=== PATIENT | female | born 1995 | race Caucasian/White ===

== ENCOUNTER → 2020-01-13 07:58 | Outpatient (CLI) | payer OTHER, SELFPAY ==
--- NOTE | 2020-01-13 08:01 | US_ITS ---
STUDY: FIRST TRIMESTER OBSTETRICAL ULTRASOUND REASON FOR EXAM: Female, 24 years old INITIAL- DATING -- SUPERVISION OF NORMAL LMP: December 16, 2019. TECHNIQUE: Transvaginal TECHNICAL QUALITY: Adequate. PRIOR ULTRASOUND: None. FINDINGS: There is visualization of a single gestational sac in a normal intrauterine position. The mean sac diameter (MSD) measures 1.5 cm, indicating an estimated gestational age (EGA) of 6 weeks, 1 days. The gestational sac shape is within normal limits. There is a visualized yolk sac. The yolk sac measures 3.7 mm. The placenta is non-visualized. There is visualization of a live embryo. The crown-rump length (CRL) measures 3.4 mm, indicating an estimated gestational age (EGA) of 6 weeks, 1 days. There is demonstrated cardiac activity with a heart rate of 107 bpm. The estimated gestation age (EGA) by LMP is 6 weeks, 0 days. The estimated date of delivery (SUYAPA) by LMP is September 07, 2020. The estimated gestation age (EGA) by US is 6 weeks, 1 days. The estimated date of delivery (SUYAPA) by US is September 06, 2020. The uterus measures 11 cm x 7.4 cm x 6.3 cm. There is no demonstrated uterine fibroid. The cervix is closed. Small subchorionic hematoma measuring 1.8 cm x 2.3 cm x 0.6 cm. The right ovary measures 3.1 cm x 5.1 cm x 3 cm. There is a 1.5 cm x 1.6 cm x 1 cm dominant follicle in the right ovary. There is no visualized right adnexal mass or complex lesion. The left ovary measures 3.3 cm x 2.7 cm x 2.1 cm.. There is no left ovarian cyst. There is no visualized left adnexal mass or complex lesion. There is no fluid in the cul de sac. US/Init OB < 14Wks US IMPRESSION: Single live uterine gestation with a mean gestational age of 6 weeks and 1 day. Small subchorionic bleed. Small right ovarian follicle. Electronically Signed: Arun Goins, at 12:44 EDT , Service support ,
== END ==
LOC: OPUS 08:01
PROVIDERS: Referring Provider Obstetrics & Gynecology; Visit Provider Obstetrics & Gynecology
DX: Z34.90 Encounter for supervision of normal pregnancy, unspecified, unspecified trimester (principal)
CPT/HCPCS: 76801

== ENCOUNTER → 2020-02-19 14:56 | Outpatient (CLI) | payer OTHER, SELFPAY ==
[2020-02-19 10:02] VITALS: BMI 28.6
[2020-02-19 15:59] LABS: Amphetamine Urine VISTA NEGATIVE (<1000 ng/mL); Barbiturate Urine VISTA NEGATIVE (< 200 ng/mL); Benzodiazepine Urine VISTA NEGATIVE (< 200 ng/mL); Cocaine Urine VISTA NEGATIVE (< 300 ng/mL); Ecstacy Urine VISTA NEGATIVE (< 500 ng/mL); Methadone Urine VISTA NEGATIVE (< 300 ng/mL); PCP Urine VISTA NEGATIVE (< 25 ng/mL); THC Urine VISTA POSITIVE (< 50 ng/mL); Vista UDS pH Range 6
[2020-02-19 18:51] LABS: Chlamydia Trachomatis by PCR Negative (Negative); Neisserai gonorrhoeae by PCR Negative (Negative); Probe Check PASS; Sample Adequacy Control PASS; Specimen Processing Control PASS
[2020-02-24 20:42] LABS: HPV Reflexed? NOT INDICATED
== END ==
LOC: LABSPEC 14:56
PROVIDERS: Referring Provider Obstetrics & Gynecology; Visit Provider Obstetrics & Gynecology
DX: Z34.90 Encounter for supervision of normal pregnancy, unspecified, unspecified trimester (principal); Z12.4 Encounter for screening for malignant neoplasm of cervix
CPT/HCPCS: 80307; 87086; 87088; 87186; 87491; 87591; 88175; G0145

== ENCOUNTER 2021-10-01 16:18 | Emergency (ER) | payer OTHER, MEDICAID, SELFPAY ==
[2021-10-01 16:20] VITALS: BP 151/105; PULSE 84; RESP 16; TEMP 37.5; O2SAT 99; BMI 23.1
--- NOTE | 2021-10-01 16:39 | EX.ED.DYSGE1 ---
HPI History of Present Illness Chief Complaint: Abd Pain Narrative Narrative: 25-year-old female presenting with constipation. She has lower abdominal pressure. She states she has not had a bowel movement in 7 days. She has not taken any oral laxatives or fiber. She states she has a low fiber diet does not eat very healthy. She tried to do an enema prior to arrival and was afraid when the enema fluid came out there was some blood in the toilet. She is not experiencing worse pain. She does state that her rectum hurts however she also did a self rectal exam and an enema. No bleeding since that time. She has no vaginal complaints. No urinary symptoms. No fever or chills. Patient does admit to nausea. PFSH PFSH Home Medications multivitamin no.47-iron fum 27 mg-folate no.1 1 mg-dha 300 mg capsule 1 cap PO DAILY #30 cap 02/19/20 [Rx Last Taken Unknown] promethazine 12.5 mg tablet 12.5 mg PO Q6H PRN #60 tab 02/19/20 [Rx Last Taken Unknown] ondansetron 4 mg PO Q8H PRN PRN #10 tab 10/01/21 [Rx Last Taken Unknown] Allergy/AdvReac Type Severity Reaction Status Date / Time amoxicillin Allergy Hives Verified 10/01/21 16:22 Family History (Updated 02/19/20 @ 09:23 by Eusebia Rosenthal) Mother Cancer Lung Father Lupus Surgical History (Updated 02/19/20 @ 09:21 by Eusebia Rosenthal) History of cholecystectomy S/P tonsillectomy and adenoidectomy Social History (Updated 02/19/20 @ 10:[address] Lucille Villanueva MD) adopted: No household members: family housing: house number of children: 2 current occupation: homemaker pets and animals: No sexually active: Yes Smoking Status: Current every day smoker tobacco type: cigarettes second hand exposure: Yes alcohol intake: current details: not while substance use type: does not use seatbelt use: always do you feel safe at home: Yes additional social history: Sean- Harvey ROS ROS ED Constitutional Constitutional ED: Denies chills or fever(s) Eyes Eyes: Denies blurry vision or diplopia ENT ENT ED: Denies rhinorrhea or sore throat Cardiovascular Cardiovascular: Denies chest pain or palpitations Respiratory/Chest Respiratory/Chest: Denies cough or dyspnea Gastrointestinal Gastrointestinal: Reports abdominal pain, constipation and nausea Genitourinary Genitourinary ED: Denies dysuria or hematuria Musculoskeletal Musculoskeletal: Denies arthralgias or myalgias Integumentary Denies rash Neurologic Neurologic: Denies headache(s) or paresthesias Psychiatric Psychiatric: Denies anxiety or depression EXAM Physical Exam Const Vital Signs: 10/01/21 16:20 Temperature 99.5 F H Temperature Source Temporal Pulse Rate 84 Respiratory Rate 16 Blood Pressure 151/105 H Blood Pressure Mean 120 Pulse Ox 99 Oxygen Delivery Method Room Air Positive well nourished General Appearance ED: NAD; Negative for pallor HEENT Reports moist mucous membranes Negative for trauma Eyes PERRL and EOMs intact bilaterally Chest Wall inspection of chest normal Resp normal respiratory effort and clear to auscultation bilaterally Cardio regular rate and regular rhythm GI non-distended GI Narrative: Generalized tenderness of the abdomen worse in the bilateral lower quadrants. Abdomen nonperitoneal. Rectal exam reveals no internal or external hemorrhoids. There is no blood or signs of injury. Palpation: soft Extremity normal to inspection Neuro oriented x3 Sensorium / Orientation: alert Psych mental status grossly normal Skin General Skin Exam: Negative for jaundice or pallor MDM MDM MDM Narrative Medical decision making narrative: Patient presenting with constipation for 7 days. Patient does have some abdominal pressure. She was more concerned that she saw blood in the toilet. Her rectal exam is normal here and there is no blood on exam. I did not palpate any stool in the rectal vault. Patient does state that she is having some nausea associate with her constipation I did give her Zofran. Her abdominal exam is benign at this time. Patient is hesitant to do another enema given her concern of a blood in the toilet. I offered to give her magnesium citrate for home and she can try to have a bowel movement at this is not improving to return to the ER. She was amenable to this plan. Patient will be discharged home in stable condition. Impression: 1. Constipation Discharge Plan Triage Chief Complaint: Abd Pain ED Provider: Calvin Chand Dx/Rx/DC Orders Instructions: Eating a High-Fiber Diet, ED Constipation (Adult) Prescriptions: New ondansetron 4 mg tablet,disintegrating 4 mg PO Q8H PRN PRN (Reason: Nausea) Qty: 10 RF: 0 No Action promethazine 12.5 mg tablet 12.5 mg PO Q6H PRN (Reason: nausea and vomiting) Qty: 60 RF: 1 PNV-DHA 27 mg iron-1 mg -300 mg capsule 1 cap PO DAILY Qty: 30 RF: 12 Primary Care Provider: Taylor Cleaning Disposition Disposition: Home, Self Care
[2021-10-01] MEDS: Ondansetron ODT 4 MG Tablet PO (16:48)
[2021-10-01] MEDS: Magnesium Citrate 300 ML PO (16:48)
--- NOTE | 2021-10-01 18:45 | ED.RN ---
PT MOTHER CALLS IN CONCERNED PT WAS NOT TREATED APPROPRIATELY. MOTHER WANTS INFORMATION ON WHAT PHYSICIAN DID. THIS RN CONFIRMS INFORMATION THAT PT MOTHER KNOWS BUT WILL NOT READ DR MEREDITH. STATES PT HAS PAIN DOWN BOTH LEGS, WHICH WAS NOT A COMPLAINT WHILE IN THE DEPARTMENT. MOTHER AWARE PT AND PHYSICIAN MADE A PLAN FOR TREATMENT AND BOTH WERE AGREEABLE WITH DISCHARGE PLAN
== END 2021-10-01 16:55 | disposition home or self-care (01) ==
PROVIDERS: Emergency Provider Student in an Organized Health Care Education/Training Program; PCP Family Medicine
DX: K59.00 Constipation, unspecified (principal); F17.210 Nicotine dependence, cigarettes, uncomplicated
CPT/HCPCS: 99283

== ENCOUNTER 2024-07-04 20:36 | Emergency (ER) | payer MEDICAID, SELFPAY ==
[2024-07-04 20:37] VITALS: BP 145/89; PULSE 90; RESP 18; TEMP 36.8; O2SAT 100; BMI 33.7
[2024-07-04 20:39] VITALS: O2SAT 96
--- NOTE | 2024-07-04 20:39 | EKG12_ITS ---
Test Reason : CP Blood Pressure : / mmHG Vent. Rate : 079 BPM Atrial Rate : 079 BPM P-R Int : 152 ms QRS Dur : 080 ms QT Int : 364 ms P-R-T Axes : 061 045 039 degrees QTc Int : 417 ms Normal sinus rhythm Normal ECG Confirmed by LEI LUDWIG MD ([id number]), metropolitan editor CHICHO ZIMMER ([id number]) on 07/08/2024 10:10:52 AM Referred By: Confirmed By:LEI LUDWIG MD
--- NOTE | 2024-07-04 21:02 | EDS_ITS ---
HPI <STANISLAV Mclain - Last Filed: 07/04/24 21:46> History of Present Illness Chief Complaint: Chest Pain Narrative Narrative: Patient is a 28-year-old female with no significant medical history, patient presents to the emergency department for pain to the left side of her chest that started last evening. Patient states that she has had multiple symptoms, patient states that she was short of breath, she had chest pain, was feeling dizziness, she also states that she had some fleabites on her lower legs. She went to a hospital in [place], they performed a full workup. Patient received a CT scan of the chest to rule out a pulmonary embolus, this was negative. They also did a CT scan of the abdomen pelvis which showed a 2.5 x 3.9 x 2.8 cyst with blood to the pancreas and left adrenal gland. Patient was given follow-up, given antibiotics for a UTI that she had in was discharged. Patient states the pain in her left chest continued, and she is here for reevaluation. PFSH <STANISLAV Mclain - Last Filed: 07/04/24 21:46> [facility] Medical History (Updated 07/04/24 @ 21:45 by STANISLAV Mclain) PTSD (post-traumatic stress disorder) Anxiety Depression Home Medications ?Medication ?Instructions ?Recorded ?Last Taken ?Type NK 07/04/24 Unknown History Allergy/AdvReac Type Severity Reaction Status Date / Time amoxicillin Allergy Hives Verified 07/04/24 20:36 Family History Mother Cancer Lung Father Lupus Surgical History History of cholecystectomy S/P tonsillectomy and adenoidectomy Social History (Updated 02/19/20 @ 10:[address] Lucille Villanueva MD) adopted: No household members: family housing: house number of children: 2 current occupation: homemaker pets and animals: No sexually active: Yes Smoking Status: Current every day smoker tobacco type: e-cigarettes second hand exposure: Yes alcohol intake: current details: not while substance use type: does not use seatbelt use: always do you feel safe at home: Yes additional social history: Sean- Harvey ROS <STANISLAV Mclain - Last Filed: 07/04/24 21:46> ROS ED ROS Narrative Constitutional: Negative for fever, chills, weight loss, weakness Eyes: Negative for vision loss, vision change, double vision ENT: Negative for any sore throat, ear pain, congestion Cardiovascular: Negative for any tightness, palpitations. Positive chest pain Respiratory: Negative for any cough, sputum production, hemoptysis, dyspnea, dyspnea on exertion, orthopnea Gastrointestinal: Negative for any abdominal pain, diarrhea, constipation, blood in stool, blood in vomit. Positive nausea and vomiting : Negative for any urinary frequency, dysuria, retention, blood in urine Muscle skeletal: Negative for any neck pain, back pain Neurological: Negative for any headache, syncope, dizziness Skin: Negative for any rashes, itching, abrasions, lacerations Psychiatric: Negative for any depression, anxiety, stress, suicidal ideation, homicidal ideation Hematologic: Negative for any excessive bruising, easy bleeding EXAM <STANISLAV Mclain - Last Filed: 07/04/24 21:46> Physical Exam Narrative Exam Narrative: Vital signs reviewed. HEET: Head normocephalic atraumatic, TMs clear bilaterally. Posterior pharynx is clear, moist mucous membranes. Nares clear bilaterally. Neck: Supple with no lymphadenopathy or tenderness. No signs of meningismus. Cardiac: Regular rate and rhythm no murmurs gallops or rubs, equal peripheral pulses bilaterally. Respiratory: Lungs clear to auscultation bilaterally. No chest tenderness. Abdomen: Soft, nontender, nondistended. No abdominal bruit or pulsatile masses. No hepatosplenomegaly Extremities: No peripheral edema, no signs of gross trauma or deformity. Active full range of motion of all extremities. Neuro: Cranial nerves II through XII intact, no focal neurological deficits. Skin: Clean dry and intact with no rash, purpura, petechiae, vesicles or pustules. Backs/flank: No CVA tenderness, no midline spinal tenderness, no deformity. Psych: Normal mood and affect. No SI, HI or acute psychosis. Const Vital Signs: 07/04/24 20:37 07/04/24 20:39 07/04/24 21:05 Temperature 98.2 F Temperature Source Oral Pulse Rate 90 Respiratory Rate 18 Respiratory Effort Normal Blood Pressure 145/89 H Blood Pressure Mean 107 Pulse Ox 100 96 Oxygen Delivery Method Room Air Room Air <Dr. Mayco Ramos DO - Last Filed: 07/04/24 23:14> Physical Exam Const Vital Signs: 07/04/24 20:37 07/04/24 20:39 07/04/24 21:05 Temperature 98.2 F Temperature Source Oral Pulse Rate 90 Respiratory Rate 18 Respiratory Effort Normal Blood Pressure 145/89 H Blood Pressure Mean 107 Pulse Ox 100 96 Oxygen Delivery Method Room Air Room Air [facility] <STANISLAV Mclain - Last Filed: 07/04/24 21:46> [facility] Lab Data Labs: Laboratory Results - last 24 hr 07/04/24 21:00 WBC 5.6 RBC 4.20 Hgb 12.6 Hct 38.8 MCV 92.4 MCH 30.0 MCHC 32.5 RDW Std Deviation 43.6 RDW Coeff of Salty 12.8 Plt Count 291 MPV 10.4 Immature Gran % (Auto) 0.200 Neut % (Auto) 36.8 L Lymph % (Auto) 49.5 H [place] % (Auto) 7.9 Eos % (Auto) 4.3 Baso % (Auto) 1.3 H Absolute Neuts (auto) 2.1 Absolute Lymphs (auto) 2.76 Nucleated RBC % 0 Sodium 140 Potassium 3.8 Chloride 110 H Carbon Dioxide 25.0 Anion Gap 5 BUN 11 Creatinine 0.71 Estim Creat Clear Calc 128.69 Est GFR (MDRD) Af Amer 126 Est GFR (MDRD) Non-Af 104 BUN/Creatinine Ratio 15.4 Glucose 96 Calcium 8.8 Total Bilirubin 0.20 AST 11 L ALT 22 Alkaline Phosphatase 64 Troponin I High Sens < 3 L Total Protein 7.6 Albumin 3.6 Globulin 4.0 Albumin/Globulin Ratio 0.9 Lipase 59 EKG EKG shows normal sinus rhythm, rate of 79: Attestation: I personally reviewed and interpreted this EKG as follows: Interpretation: Sinus Rhythm Comments: EKG shows a normal sinus rhythm, rate of 79 bpm, PA interval 152 ms, QRS duration 80 ms, no acute ST elevation, no acute infarct noted. Treatment and Re-Evaluation :: Differential diagnosis includes however is not limited to: ACS, MS, PE, anxiety, muscle skeletal chest pain Patient appears generally well, vital signs are stable, patient is nontoxic- appearing. Presenting to the emergency department with left-sided chest pain. Patient did have a full workup at [facility] yesterday. Patient had laboratory values, that were negative, patient did have a CTA of the chest, CT scan of the abdomen pelvis, they did see a 3 cm pancreatic versus adrenal cyst. She was told to follow-up with GI. Patient states that the pain in her left chest was worse today and she is here for reevaluation. She will receive a cardiac workup including basic labs, chest x-ray, all radiologic examinations were read, reviewed by the emergency department attending. From these reads, a plan of care will be put in place. Patient will be given IV Zofran, Toradol and be reevaluated. Patient on reevaluation was feeling better. Patient's chest x-ray was negative for any acute process. Patient's laboratory values were unremarkable, troponin was less than 3. There is no need for repeat. At this time, I spoke with the patient at length, the patient will need to follow-up with both her PCP as well as a GI specialist. I did go over the reports from yesterday with her via clina-sync. Patient at this time is agreeable, she instructed return for any worsening symptoms, patient stable for discharge. <Dr. Mayco Ramos, DO - Last Filed: 07/04/24 23:14> [facility] Narrative Medical decision making narrative: I have personally performed a face to face assessment of the patient and have reviewed the BRANDEE Note. I performed a substantive portion of the visit including all aspects of the following. My burk findings include: History: Patient presents with chest pain that began today. Patient states it is over the left side of her chest. Patient states that it came on gradually. Patient describes it as aching and stabbing. Patient states it is worse with movement of her arm and torso. Patient states nothing makes it better. Patient admits to some nausea and vomiting. Patient states she did break out into a sweat. Patient denies any shortness of breath or cough. Patient states she felt lightheaded with this. Patient was seen in [place] yesterday and had a CT scan of her chest done at that time. Patient is concerned because it showed a possible cyst on her pancreas. Patient is concerned that this could be causing her pain. Exam: Vital signs are stable. Patient is afebrile. Patient is in no acute distress. Oral mucosa is pink and moist. Neck is supple. Trachea is midline. There is no JVD. Heart was regular rate and rhythm. Lungs are clear and equal bilateral. There is good respiratory effort noted. Abdomen is soft. Bowel sounds are normal. There is no tenderness. Cranial nerves II through XII are intact. There are no focal motor or sensory deficits noted. There is reproducible tenderness over the left anterior chest wall. There is no bony crepitance or step-off. There is no subcutaneous emphysema noted. Medical Decision Making: Differential diagnosis includes cardiac dysrhythmia, cardiac ischemia, pneumothorax, musculoskeletal pain, pancreatitis, and anxiety. EKG will be obtained to assess for cardiac dysrhythmia and cardiac ischemia. Chest x-ray will be obtained to assess for pneumonia and pneumothorax. CBC will be obtained to assess for leukocytosis and anemia. Comprehensive metabolic profile will be obtained to assess for hepatic function, renal function, and electrolyte abnormality. Lipase will be obtained to assess for pancreatitis. High-sensitivity troponin will be obtained to assess for cardiac ischemia. EKG was obtained. On my independent interpretation, it showed a normal sinus rhythm with a rate of 79. PA interval, QRS interval, and QTc intervals were all normal. [place] was normal. There are no acute ST or T wave changes. PA and lateral chest x-ray was obtained. There are 2 views. On my independent interpretation, lung gayle are clear. There is normal cardiac silhouette. Bony thorax is normal. There is no acute process noted. Radiologist also interpreted the x-ray and agrees. CBC was reviewed and was within normal limits. Comprehensive metabolic profile was reviewed and was within normal limits. High-sensitivity troponin was reviewed and was less than 3. Lipase was reviewed and was normal at 59. Patient was advised of her findings. Patient was advised that this is most likely musculoskeletal pain. Patient was instructed to follow-up with her primary care physician in 5 to 7 days. Patient understood and was agreeable with the plan. All questions were answered. Lab Data Labs: Laboratory Results - last 24 hr 07/04/24 21:00 WBC 5.6 RBC 4.20 Hgb 12.6 Hct 38.8 MCV 92.4 MCH 30.0 MCHC 32.5 RDW Std Deviation 43.6 RDW Coeff of Salty 12.8 Plt Count 291 MPV 10.4 Immature Gran % (Auto) 0.200 Neut % (Auto) 36.8 L Lymph % (Auto) 49.5 H [place] % (Auto) 7.9 Eos % (Auto) 4.3 Baso % (Auto) 1.3 H Absolute Neuts (auto) 2.1 Absolute Lymphs (auto) 2.76 Nucleated RBC % 0 Sodium 140 Potassium 3.8 Chloride 110 H Carbon Dioxide 25.0 Anion Gap 5 BUN 11 Creatinine 0.71 Estim Creat Clear Calc 128.69 Est GFR (MDRD) Af Amer 126 Est GFR (MDRD) Non-Af 104 BUN/Creatinine Ratio 15.4 Glucose 96 Calcium 8.8 Total Bilirubin 0.20 AST 11 L ALT 22 Alkaline Phosphatase 64 Troponin I High Sens < 3 L Total Protein 7.6 Albumin 3.6 Globulin 4.0 Albumin/Globulin Ratio 0.9 Lipase 59 Discharge Plan Triage Chief Complaint: Chest Pain ED Midlevel Provider: Henrik Pearson ED Provider: Mayco Ramos Dx/Rx/DC Orders Clinical Impression: Chest pain Instructions: ED Chest Pain, Uncertain Cause Prescriptions: No Action NK Primary Care Provider: Taylor Cleaning Referrals: Taylor Cleaning DO [Primary Care Provider] - Sandra Bang DO [Non-Staff] - Louis Farley DO [Med Staff - Active Staff] - Activity Restrictions/Additional Instructions: Please follow-up with both your PCP, it is I showed you on your card. Please follow-up with GI, you have a referral. Please return for any worsening symptoms. Print Language: Jordanian Disposition Disposition: Home, Self Care
[2024-07-04] MEDS: Ondansetron 4 MG/2 ML Vial IV (21:08)
[2024-07-04] MEDS: Ketorolac 15 MG/ML Vial IV (21:08)
[2024-07-04 21:10] LABS: Absolute Lymphocyte Count 2.76 X10^3/uL (0.83-4.51); Absolute Neutrophil Count 2.1 X10^3/uL (2.0-7.7); Basophil# 0.07 X10^3/uL; Basophil% 1.3 % (0-1); Eosinophil# 0.24 X10^3/uL; Eosinophils% 4.3 % (0-5); Hematocrit 38.8 % (37-47); Hemoglobin 12.6 g/dL (12.0-15.0); Lymphocyte # 2.76 X10^3/ul (0.83-4.51); Lymphocyte % 49.5 % (19-41); Mean Corp Hgb Conc 32.5 g/dL (32-36); Mean Corpuscular Volume 92.4 fL (81-99); Mean Platelet Vol. 10.4 fl (6.2-12.0); Monocyte# 0.44 X10^3/uL; Monocyte% 7.9 % (0-10); NRBC Flagged by Analyzer 0 % (0-5); Neutrophil # 2.06 X10^3/uL (2.7-7.7); Neutrophil % 36.8 % (47-70); Platelet Count 291 K/mm3 (150-450); RBC Distribution Width CV 12.8 % (11.6-14.6); RBC Distribution Width SD 43.6 fl (35.1-43.9); White Blood Count 5.6 K/mm3 (4.4-11.0)
--- NOTE | 2024-07-04 21:26 | RAD_ITS ---
INDICATION: COUGH EXAMINATION/TECHNIQUE: X-RAY - XR Chest 2 Views COMPARISON: None. FINDINGS: The lungs are clear. The cardiomediastinal silhouette is unremarkable. No pleural effusion or pneumothorax. No acute osseous abnormalities. RAD/Chest PA and Lateral IMPRESSION: No acute radiographic abnormalities. Electronically Signed: Nahun Olsen MD at 22:13 EDT ,
[2024-07-04 21:35] LABS: ALB/GLOB Ratio 0.9 RATIO (0.9-2.4); AST(SGOT) 11 U/L (15-37); Alanine Aminotransfer ALT/SGPT 22 U/L (13-56); Albumin, Serum 3.6 g/dL (3.2-5.0); Alkaline Phosphatase 64 U/L (45-117); Anion Gap 5 (5-15); BUN 11 mg/dL (7-18); BUN/Creat Ratio 15.4 RATIO (10-20); Calcium,Total 8.8 mg/dL (8.5-10.1); Chloride 110 mmol/L (98-107); Creatinine, Serum 0.71 mg/dL (0.55-1.02); EST Glomerular Filtration Rate 104 mL/min (>60); Est Glom Filt Rate - Afr Amer 126 mL/min (>60); Estimated Creatinine Clearance 128.69 ml/min; Glucose 96 mg/dL (74-106); Lipase 59 U/L (13-75); Potassium 3.8 mmol/L (3.5-5.1); Protein, Total 7.6 g/dL (6.4-8.2); Sodium Level 140 mmol/L (136-145); Troponin-I HS < 3 pg/mL (3.0-54.0)
[2024-07-04 21:36] VITALS: BP 136/84; PULSE 75; RESP 18; O2SAT 100
[2024-07-04 22:00] VITALS: BP 108/67; PULSE 70; RESP 15; O2SAT 100
[2024-07-04 22:31] VITALS: BP 120/74; PULSE 71; RESP 17; TEMP 36.6; O2SAT 100
== END 2024-07-04 22:34 | disposition home or self-care (01) ==
PROVIDERS: Nurse Practitioner; Emergency Provider Emergency Medicine; PCP Family Medicine; Visit Provider Emergency Medicine
DX: R07.9 Chest pain, unspecified (principal); F17.290 Nicotine dependence, other tobacco product, uncomplicated
CPT/HCPCS: 71046; 80053; 83690; 84484; 85025; 93005; 96374; 96375; 99284; A4216; J2405

== ENCOUNTER → 2024-09-01 | Outpatient (CLI) | payer MEDICAID, SELFPAY ==
--- NOTE | 2024-09-01 17:56 | CT_ITS ---
STUDY: CT ABDOMEN WITH AND WITHOUT CONTRAST REASON FOR EXAM: Female, 28 years old. Pancreatic cyst -- pancreatic protocol RADIATION DOSAGE (If Supplied By Facility): CTDIvol = ( 13.38 ) mGy, DLP = ( 1085.57 ) mGycm TECHNIQUE: Transaxial images were obtained pre and post I.V. administration of Oral and amp;amp; IV Readi-CAT and amp;amp; 100mL Isovue-300, and with oral contrast. Sagittal and coronal images were reconstructed. Individualized dose optimization techniques were used for this CT. COMPARISON: None. FINDINGS: The visualized lung bases are unremarkable. The visualized portions of the heart are within normal limits. There is decreased attenuation of the liver consistent with steatosis. There are surgical clips in the gallbladder fossa consistent with a prior cholecystectomy. Normal spleen. There is a 3.3 cm x 2.6 cm cyst in the tail of the pancreas. Normal bilateral adrenal glands. Normal right kidney. Normal left kidney. Normal visualized stomach. Normal small intestine. Normal colon. The appendix is visualized and appears normal. Normal abdominal aorta. Normal inferior vena cava. Normal retroperitoneum. Normal abdominal wall. Normal osseous structures. CT/Abdomen W/WO IV Contrast IMPRESSION: There is a 3.3 cm x 2.6 cm cyst in the tail of the pancreas. Fatty infiltration of the liver. Status post cholecystectomy. Electronically Signed: Arun Goins MD at 11:49 EST ,
== END | disposition home or self-care (01) ==
LOC: CT 17:54
PROVIDERS: PCP Family Medicine; Referring Provider Internal Medicine Gastroenterology; Visit Provider Internal Medicine Gastroenterology
DX: K86.2 Cyst of pancreas (principal)
CPT/HCPCS: 74170; Q9967

== ENCOUNTER → 2024-09-29 | Outpatient (CLI) | payer MEDICAID, SELFPAY ==
--- NOTE | 2024-09-29 09:07 | MRI_ITS ---
MRI abdomen and MRCP without contrast 09/29/2024 9:43 AM COMPARISON: CT 09/01/2024 CLINICAL HISTORY: pancreatic cyst, PREVIOUS CT SCANS DONE TECHNIQUE: Multiplanar and multisequence MR images of the abdomen were obtained with MRCP sequence. Three-dimensional post-processing reconstructions were performed. No IV contrast was given. FINDINGS: Liver: Unremarkable Gallbladder: Surgically absent. Bile Ducts: Mild dilatation of the common bile duct compatible with reservoir effect status post cholecystectomy. Pancreas: Well-circumscribed 3 x 3 cm T1 hypointense/T2 hyperintense cystic lesion in the body/proximal tail of the pancreas. No main pancreatic ductal dilatation. Spleen: Unremarkable Adrenal Glands: Unremarkable Kidneys: Unremarkable GI Tract: Unremarkable Lymphadenopathy: Absent Ascites: Absent Bones: No suspicious lesions MRI/MRCP Abdomen without Contrast IMPRESSION: Well-circumscribed 3 cm cystic lesion in the body/proximal tail of the pancreas is most likely a pseudocyst. Electronically Signed: Nahun Olsen MD at 13:59 EST ,
== END | disposition home or self-care (01) ==
PROVIDERS: PCP Family Medicine; Referring Provider Internal Medicine Gastroenterology; Visit Provider Internal Medicine Gastroenterology
DX: K86.2 Cyst of pancreas (principal)
CPT/HCPCS: 74181

== ENCOUNTER → 2025-03-02 | Outpatient (CLI) | payer MEDICAID, SELFPAY ==
--- NOTE | 2025-03-02 15:30 | MRI_ITS ---
PROCEDURE: MRCP ABDOMEN WITHOUT CONTRAST 03/02/2025 REASON FOR EXAM: PANCREATIC CYST TECHNIQUE: MRI of the upper abdomen without and with intravenous gadolinium-based contrast. Multiplanar and multisequence images were obtained. CONTRAST: None. COMPARISON: Not provided at the time of interpretation. FINDINGS: Well-defined 3.4 x 3.3 cm distal pancreatic body cyst is noted. Prior cholecystectomy. Nondilated common bile duct measuring 5.6 mm. Small sliding hiatal hernia. The visualized lung bases are unremarkable. Normal unenhanced liver. Normal extrahepatic biliary system. Normal unenhanced spleen. Normal bilateral adrenal glands. Normal size of the right kidney. There is no right renal mass. There are no right renal calculi. There is no right hydronephrosis. Normal visualized right ureter. Normal size of the left kidney. There is no left renal mass. There are no left renal calculi. There is no left hydronephrosis. Normal visualized left ureter. Normal visualized stomach. Normal visualized small intestine. Normal visualized colon. There is no demonstrated peritoneal fluid. Normal abdominal aorta. Normal inferior vena cava. Normal retroperitoneum. Normal abdominal wall. Normal osseous structures. MRI/MRCP Abdomen without Contrast IMPRESSION: Well-defined 3.4 x 3.3 cm distal pancreatic body cyst is noted. Prior cholecystectomy. Nondilated common bile duct measuring 5.6 mm. Small sliding hiatal hernia. No prior imaging is provided at the time of interpretation. Reading [facility]
== END | disposition home or self-care (01) ==
LOC: MRI 15:25
PROVIDERS: PCP Family Medicine; Referring Provider Internal Medicine Gastroenterology; Visit Provider Internal Medicine Gastroenterology
DX: K86.2 Cyst of pancreas (principal)
CPT/HCPCS: 74181

== ENCOUNTER → 2025-03-06 | Outpatient (CLI) | payer MEDICAID, SELFPAY ==
[2025-03-06 12:29] LABS: Erythrocyte Sedimentation Rate 21 mm/hr (0-30)
[2025-03-06 13:00] LABS: Cholesterol 201 mg/dL (<=200); High Density Lipoprotein 42 mg/dL; Low Density Lipoprotein Calc. 124 mg/dL; Triglycerides 174 mg/dL; Very Low Density Lipoprotein 35 mg/dL (5-40); cholesterol:hdl ratio screen 4.81
[2025-03-06 13:34] LABS: Amylase 66 U/L (28-100); CRP 6.29 mg/L (0.0-3.0); Lipase 93 U/L (13-75)
[2025-03-09 17:08] LABS: Carbohydrate Ag 19-9 2261 41 U/mL (0-35); Endomysial Antibody IgA Negative (Negative); Immunoglobulin A 256 mg/dL (87-352); t-Transglutaminase IgA <2 U/mL (0-3)
== END | disposition home or self-care (01) ==
PROVIDERS: PCP Family Medicine; Referring Provider Internal Medicine Gastroenterology; Visit Provider Internal Medicine Gastroenterology
DX: K86.2 Cyst of pancreas (principal)
CPT/HCPCS: 80061; 82150; 82784; 83516; 83690; 85652; 86140; 86255; 86301